=== PATIENT | male | born 1980 | race Caucasian/White ===

== ENCOUNTER 2018-11-17 11:05 | Outpatient (CLI) | payer BC ==
--- NOTE | 2018-11-17 11:57 | RAD ---
Exam: 2 views lumbar spine HISTORY: Follow-up exam. Lumbar fusion. FINDINGS: 5 lumbar type bodies. Vertebral body height is maintained. No fracture. Lateral left-sided transpedicular screw at L5-S1. No pericardial lucency. Disc prosthesis at L5-S1. Left facetectomy is noted, at L5. No spondylolisthesis or spondylolysis. Mild degenerative change of the thoracolumbar junction and at L1-L2 IMPRESSION: Uncomplicated lumbar fusion.
== END 2018-11-17 11:06 | disposition home or self-care (01) ==
LOC: TBSIIMAG 11:05
PROVIDERS: ATTEND Neurological Surgery
DX: M54.16 Radiculopathy, lumbar region (principal); Z98.1 Arthrodesis status
CPT/HCPCS: 72100

== ENCOUNTER 2019-01-10 12:39 | Outpatient (CLI) | payer BC ==
--- NOTE | 2019-01-10 13:16 | RAD ---
2 views lumbar spine: 01/10/2019 COMPARISON: 11/17/2018 History: Left lower extremity radiculopathy FINDINGS: Stable left-sided pedicle screw present at L5 and S1 with a vertically oriented interlockin g nayely. Stable intervertebral disc device at L5-S1. Lumbar vertebral body height and alignment appears within normal limits. IMPRESSION: Stable two-view examination of the lumbar spine.
== END 2019-01-10 12:40 | disposition home or self-care (01) ==
LOC: TBSIIMAG 12:39
PROVIDERS: ATTEND Neurological Surgery
DX: M54.16 Radiculopathy, lumbar region (principal)
CPT/HCPCS: 72100

== ENCOUNTER 2019-05-16 14:58 | Outpatient (CLI) | payer BC ==
--- NOTE | 2019-05-16 15:42 | RAD ---
LUMBAR SPINE SERIES TWO VIEWS: 05/16/19 HISTORY: Low back pain. Postop evaluation. COMPARISON: 01/10/19 exam. Left unilateral pedicle screws at L5-S1 and implants related to disc implant which are within the com pliance of the disc level are again noted. Changes are stable as compared to the prior exam. IMPRESSION: Stable postop changes. POS: [facility]
== END 2019-05-16 14:59 | disposition home or self-care (01) ==
LOC: TBSIIMAG 14:58
PROVIDERS: ATTEND Neurological Surgery
DX: M54.16 Radiculopathy, lumbar region (principal); Z98.890 Other specified postprocedural states
CPT/HCPCS: 72100

== ENCOUNTER 2019-08-01 07:20 | Day surgery (SDC) | payer BC ==
[2019-07-31 15:58] VITALS: BMI 25.0
[2019-08-01] MEDS ORDERED: Lorazepam 1 MG TAB ONE (07:42)
--- NOTE | 2019-08-01 09:17 | RAD ---
Exam: Lumbar myelogram HISTORY: Lumbar radiculopathy Previous lumbar fusion COMPARISON: None Exposure: 0.5 minutes, 92.9 mcg/sq m FINDINGS: 2 views lumbar spine: 5 lumbar type vertebra. Lumbar spine vertebral body height is maintai jade. No fracture. There is perihardware lucency along the left L5 and left S1 transpedicular screw. L5-S1 disc prosthesis. No spondylolisthesis. No spondylolysis. Visualized sacrum and bony pelvis are intact Successful lumbar puncture for intrathecal contrast administration. Total of 10 cc of Isovue-M 200 co ntrast was administered intrathecally at the L3-L4 level. TECHNIQUE: Consent obtained to perform a lumbar puncture for lumbar myelogram. Patient's back was laureano luated. The L3-L4 level was deemed appropriate. Skin was prepped and draped in sterile fashion. 1% lidocaine, buffered with sodium bicarbonate was used for local anesthesia. Under fluoroscopic guidanc e, a 22-gauge spinal needle was advanced into the CSF space. Prompt flow of clear CSF into the hub of the needle. Via a short tubing catheter, total of 10 cc of Isovue-M 200 contrast was administered intrathecally. Patient tolerated the procedure well. No immediate or postprocedure complications IMPRESSION: Successful lumbar puncture for lumbar myelogram. Please refer to separate myelogram CT fo r further detail
--- NOTE | 2019-08-01 09:21 | CT ---
POST MYELOGRAM LUMBAR SPINE CT: HISTORY: Previous lumbar fusion. Lumbar radiculopathy. FINDINGS: Appropriate attenuation of the visualized solid organs and paraspinal muscles. No acute abnormality i n the visualized alimentary canal. Five lumbar-type vertebrae. Lumbar spine vertebral body height is maintained. No fracture. No spondyl olisthesis. No spondylolysis. Unilateral left-sided transpedicular screw at L5 and S1. There are perihardware lucencies involving both screws. L5-S1 disc prosthesis. Partial resection of the left fa cet at L5 and S1. Conus medullaris terminates at the mid L1 level. T11-T12 and T12-L1: No significant central canal stenosis or significant neural foraminal narrowing. L1-L2: No significant central canal stenosis or significant neural foraminal narrowing. L2-L3: No significant central canal stenosis or significant neural foraminal narrowing. L3-L4: No significant central canal stenosis or significant neural foraminal narrowing. L4-L5: Minimal central disc herniation. Minimal central canal stenosis. Bilaterally, neural foramina are patent. L5-S1: Disc prosthesis. Left facetectomy and left hemilaminectomy defect. No significant stenosis of the thecal sac. Minimal encroachment upon bilateral subarticular zones due to soft tissue density which may represent scar tissue versus visual disc material. No significant mass effect obscuration o f either traversing S1 nerve root. Mild to moderate right neural foraminal narrowing. There is abnormal soft tissue density in the left neural foramen which obscures the foraminal left L5 nerve ro ot. IMPRESSION: 1. Lumbar fusion changes at L5-S1. 2. Perihardware lucency involving the left L5 and S1 transpedicular screws. 3. Minimal encroachment upon bilateral subarticular zones at L5-S1 due to soft tissue density which m ay represent scar tissue versus residual disc material. 4. Abnormal soft tissue density in the left neural foramen, obscuring the foraminal left L5 nerve daniel t. Soft tissue density may represent disc material versus scar tissue. Transcribed Date/Time: 08/01/2019 9:37 AM
[2019-08-01] MEDS ORDERED: Iopamidol-M 200 41% 20 ML VIAL ONE (10:27)
[2019-08-01 14:32] VITALS: BP 146/112; TEMP 97.2
== END 2019-08-01 09:40 | disposition home or self-care (01) ==
LOC: RAD 07:20
PROVIDERS: ATTEND Neurological Surgery
PROC: B02B1ZZ Computerized Tomography (CT Scan) of Spinal Cord using Low Osmolar Contrast (ICD-10-PCS; principal; 2019-08-01)
DX: M54.16 Radiculopathy, lumbar region (principal); F41.9 Anxiety disorder, unspecified; F43.10 Post-traumatic stress disorder, unspecified; Z87.891 Personal history of nicotine dependence; Z79.899 Other long term (current) drug therapy
CPT/HCPCS: 62304; 72132; Q9966